=== PATIENT | female | born 1980 | race Caucasian/White ===

== ENCOUNTER 2018-02-18 15:05 | Outpatient (CLI) | payer BC ==
--- NOTE | 2018-02-18 16:25 | BD ---
DEXA BONE MINERAL DENSITOMETRY STUDY 02/18/18 HISTORY: Other specified disorder of bone density and structure, unspecified. FINDINGS: Lumbar Spine: BMD (g/cm2) T-Score: Z-Score: L1 0.679 -2.8 -2.8 L2 0.705 -2.9 -2.9 L3 0.745 -3.1 -3 L4 0.766 -2.7 -2.6 L1-L4 0.727 -2.9 -2.8 Femoral Neck: 0.626 -2 -1.8 Total Femur: 0.761 -1.5 -1.4 There has been interval decrease in bone mineral density of the lumbar spine by 7.4% with decrease in bone mineral density of the left femoral neck by 0.8%. Impression: 1. Moderate osteopenia of the lumbar spine and left femoral neck. 2. The ten year major osteoporotic risk fracture is 2.4% with ten year hip fracture risk of 0.4% . POS: HEYDI
== END 2018-02-18 15:06 | disposition home or self-care (01) ==
LOC: BICMAMMO 15:05
PROVIDERS: ATTEND Family Medicine
DX: M85.89 Other specified disorders of bone density and structure, multiple sites (principal)
CPT/HCPCS: 77080

== ENCOUNTER 2022-09-11 13:48 | Outpatient (CLI) | payer BC | END 2022-09-11 13:49 | disposition home or self-care (01) | LOC: BICMAMMO 13:48 | PROVIDERS: ATTEND Family Medicine | DX: M85.851 Other specified disorders of bone density and structure, right thigh (principal); M81.0 Age-related osteoporosis without current pathological fracture | CPT/HCPCS: 77080 ==

== ENCOUNTER 2024-05-30 10:48 | Outpatient (CLI) | payer BC | END 2024-05-30 10:49 | disposition home or self-care (01) | LOC: BICMAMMO 10:48 | PROVIDERS: ATTEND Family Medicine | DX: K51.00 Ulcerative (chronic) pancolitis without complications (principal); M81.8 Other osteoporosis without current pathological fracture; Z79.899 Other long term (current) drug therapy; M85.851 Other specified disorders of bone density and structure, right thigh; M85.852 Other specified disorders of bone density and structure, left thigh | CPT/HCPCS: 77080 ==

== ENCOUNTER 2024-11-01 12:14 | Outpatient (CLI) | payer BC | END 2024-11-01 12:15 | disposition home or self-care (01) | LOC: BICMAMMO 12:14 | PROVIDERS: ATTEND Family Medicine | DX: M81.8 Other osteoporosis without current pathological fracture (principal); K51.00 Ulcerative (chronic) pancolitis without complications; E03.9 Hypothyroidism, unspecified; M85.89 Other specified disorders of bone density and structure, multiple sites; Z79.899 Other long term (current) drug therapy | CPT/HCPCS: 77080 ==